=== PATIENT | male | born 1960 | race Caucasian/White ===

== ENCOUNTER 2019-08-03 13:11 | Emergency (ER) | payer MEDICARE, MEDICAID ==
[~2019-08-03] VITALS: Ht 177.8 cm; Wt 72.0 kg
[2019-08-03 13:14] VITALS: BP 120/84
[2019-08-03] MEDS ORDERED: ACETAMINOPHEN 325MG TABLET PO ONE (13:45)
[2019-08-03] MEDS ORDERED: FLUORESCEIN SODIUM 1MG/STRIP RIGHTEYE ONE (13:45)
[2019-08-03] MEDS ORDERED: TETRACAINE 0.5% OPHTH DROPS 4ML RIGHTEYE ONE (14:45)
== END 2019-08-03 15:57 | disposition home or self-care (01) ==
LOC: ER 13:11
DX: S05.01XA Injury of conjunctiva and corneal abrasion without foreign body, right eye, initial encounter (principal); X58.XXXA Exposure to other specified factors, initial encounter; Y93.9 Activity, unspecified; Y92.9 Unspecified place or not applicable; F41.9 Anxiety disorder, unspecified; J45.909 Unspecified asthma, uncomplicated; F32.9 Major depressive disorder, single episode, unspecified; I25.10 Atherosclerotic heart disease of native coronary artery without angina pectoris; F20.9 Schizophrenia, unspecified
CPT/HCPCS: 99283

== ENCOUNTER 2019-08-04 07:22 | Emergency (ER) | payer MEDICARE, MEDICAID ==
[~2019-08-04] VITALS: Ht 167.6 cm; Wt 62.0 kg
[2019-08-04] MEDS ORDERED: QUETIAPINE FUMARATE 50MG TABLET PO SCH (09:00)
[2019-08-04 10:10] VITALS: BP 126/90
== END 2019-08-04 10:39 ==
LOC: ER 08:11
DX: F30.9 Manic episode, unspecified (principal); F41.9 Anxiety disorder, unspecified; J45.909 Unspecified asthma, uncomplicated; F20.9 Schizophrenia, unspecified; I25.10 Atherosclerotic heart disease of native coronary artery without angina pectoris; Z87.09 Personal history of other diseases of the respiratory system
CPT/HCPCS: 99283; 99284

== ENCOUNTER 2019-08-04 11:14 | Emergency (ER) | payer MEDICARE, MEDICAID ==
[~2019-08-04] VITALS: Ht 167.6 cm; Wt 68.0 kg
[2019-08-04] MEDS ORDERED: SODIUM CHLORIDE 0.9% 1,000 ML IV ONE (11:34)
[2019-08-04 11:52] LABS: BASOPHILS % 0.5 % (0.0-2.0); EOSINOPHILS % 0.4 % (0.0-5.0); HEMATOCRIT. 39.9 % (42.0-52.0); LYMPHOCYTES % 27.2 % (20.0-50.0); MEAN CORPUSCULAR HEMOGLOBIN 30.4 pg (28.0-32.0); MEAN PLATELET VOLUME 7.8 fl (7.4-10.4); MONOCYTES % 10.1 % (2.0-8.0); NEUTROPHILS % 61.8 % (40.0-76.0); PLATELET 225 x1000/uL (130-400); RED BLOOD CELL COUNT 4.59 mill/uL (4.7-6.1); RED CELL DISTRIBUTION WIDTH 13.2 % (11.6-14.6)
[2019-08-04 11:56] LABS: CHLORIDE 108 mEq/L (98-107)
[2019-08-04 12:00] LABS: ETHANOL BLOOD < 10 mg/dL
[2019-08-04] MEDS ORDERED: OLANZAPINE 10 MG/VIAL IM ONE (12:00)
[2019-08-04] MEDS ORDERED: LORAZEPAM 2MG/ML CPJ IM ONE (12:00)
[2019-08-04 14:21] LABS: CLARITY URINE CLEAR (CLEAR); COLOR URINE YELLOW (YELLOW); KETONES URINE 2+ (NEGATIVE); LEUKOCYTE ESTERASE URINE NEGATIVE (NEGATIVE); NITRITE URINE NEGATIVE (NEGATIVE); OCCULT BLOOD URINE NEGATIVE (NEGATIVE); PH URINE 6.5 (4.5-8.0); PROTEIN URINE NEGATIVE (NEGATIVE); SPECIFIC GRAVITY URINE 1.012 (1.005-1.030); UROBILINOGEN URINE 0.2 E.U./dL (0.2-1.0)
[2019-08-04 14:43] LABS: *AMPHETAMINES SCREEN URINE NEGATIVE (NEGATIVE); *BARBITURATES SCREEN URINE NEGATIVE (NEGATIVE); *BENZODIAZEPINES SCREEN URINE NEGATIVE (NEGATIVE); *COCAINE SCREEN URINE NEGATIVE (NEGATIVE); CANNABINOID URINE SCREEN NEGATIVE (NEGATIVE); METHADONE URINE SCREEN NEGATIVE (NEGATIVE); OPIATES URINE SCREEN NEGATIVE (NEGATIVE)
[2019-08-04 14:44] LABS: PHENCYCLIDINE URINE SCREEN NEGATIVE (NEGATIVE)
[2019-08-05 12:30] VITALS: BP 121/73
== END 2019-08-05 12:50 | disposition home or self-care (01) ==
LOC: ER 11:14
DX: R45.1 Restlessness and agitation (principal); F20.9 Schizophrenia, unspecified; F41.9 Anxiety disorder, unspecified; J45.909 Unspecified asthma, uncomplicated; F32.9 Major depressive disorder, single episode, unspecified; I25.10 Atherosclerotic heart disease of native coronary artery without angina pectoris
CPT/HCPCS: 36415; 80053; 80305; 80307; 80320; 80329; 81003; 84484; 85025; 93005; 96372; 99284; J2060; J3490; J7030; 99283; G0480

== ENCOUNTER 2019-12-31 19:14 | Inpatient (IN) | payer MEDICARE, OTHER ==
[~2019-12-31] VITALS: Ht 167.6 cm; Wt 63.5 kg
[2019-12-31 21:31] LABS: BASOPHILS % 0.5 % (0.0-2.0); HEMATOCRIT. 42.2 % (42.0-52.0); HEMOGLOBIN. 14.8 g/dL (14.0-18.0); LYMPHOCYTES % 32.9 % (20.0-50.0); MEAN CORPUSCULAR HEMOGLOBIN 30.6 pg (28.0-32.0); MEAN CORPUSCULAR VOLUME 87.1 fL (80.0-94.0); MEAN PLATELET VOLUME 8.6 fl (7.4-10.4); MONOCYTES % 8.6 % (2.0-8.0); PLATELET 205 x1000/uL (130-400); RED BLOOD CELL COUNT 4.84 mill/uL (4.7-6.1); RED CELL DISTRIBUTION WIDTH 13.6 % (11.6-14.6)
[2019-12-31 21:38] LABS: CHLORIDE 103 mEq/L (98-107)
[2019-12-31 21:41] LABS: INR 0.9; PARTIAL THROMBOPLASTIN TIME 26.4 sec (23.4-31.0); PROTHROMBIN TIME 10.3 sec (9.6-11.0)
[2019-12-31] MEDS ORDERED: LORAZEPAM 1MG TABLET PO ONE (21:45)
[2020-01-01] MEDS ORDERED: ONDANSETRON HCL 4MG/2ML INJ IV PRN (01:00)
[2020-01-01] MEDS ORDERED: DIPHENHYDRAMINE 50MG/ML VIAL IV PRN (01:00)
[2020-01-01] MEDS ORDERED: GUAIFENESIN 200MG/10ML SUGAR FREE UDC PO PRN (01:00)
[2020-01-01] MEDS ORDERED: MAGNESIUM/ALUMINUM HYDROXIDE/SIMETHICONE 30ML UDC PO PRN (01:00)
[2020-01-01] MEDS ORDERED: CLONIDINE 0.1MG TABLET PO PRN (01:00)
[2020-01-01] MEDS ORDERED: ACETAMINOPHEN 325MG TABLET PO PRN ×2 (01:00)
[2020-01-01] MEDS ORDERED: POTASSIUM CHLORIDE 20MEQ TABLET SR PO SCH (01:00)
[2020-01-01 03:21] VITALS: BP 124/71
[2020-01-01] MEDS ORDERED: MELA10TA3 PO (04:19)
[2020-01-01] MEDS ORDERED: DOCU-138 PO (04:19)
[2020-01-01] MEDS ORDERED: LORA-250 PO (04:19)
[2020-01-01] MEDS ORDERED: LACT10SO30 MT (04:19)
[2020-01-01] MEDS ORDERED: CALC-1042 PO (04:19)
[2020-01-01] MEDS: SODIUM CHLORIDE 0.9% INJ 3ML FLUSH IVF SCH ×3 (05:40→21:17)
[2020-01-01] MEDS: ASPIRIN 81MG TABLET PO SCH (07:59)
[2020-01-01 08:00] VITALS: BP 124/75
[2020-01-01] MEDS: LORAZEPAM 1MG TABLET PO PRN ×2 (10:35→21:17)
[2020-01-01 12:00] VITALS: BP 121/59
[2020-01-01] MEDS ORDERED: INFLUENZA VIRUS VACCINE(AFLURIA) 0.5ML SYR IM ONE (12:00)
[2020-01-01] MEDS ORDERED: PNEUMOCOCCAL 23-VAL P-SAC VAC 0.5 ML IM ONE (12:00)
[2020-01-01] MEDS ORDERED: NON FORMULARY PATIENT HOME MED XX SCH (15:00)
[2020-01-01 16:00] VITALS: BP 124/82
[2020-01-01] MEDS: DOCUSATE SODIUM 250MG CAPSULE PO SCH (17:44)
[2020-01-01] MEDS: CARBIDOPA/LEVODOPA 10/100MG TABLET PO SCH ×2 (17:44→21:17)
[2020-01-01] MEDS: CHOLECALCIFEROL (D3) 1000 UNIT TABLET PO SCH (17:44)
[2020-01-01] MEDS: PROPRANOLOL HCL 10MG TABLET PO SCH (17:44)
[2020-01-01] MEDS: PRAMIPEXOLE DI-HCL 0.25MG TABLET PO SCH (17:44)
[2020-01-01] MEDS: MONTELUKAST SODIUM 10MG TABLET PO SCH (17:45)
[2020-01-01] MEDS: QUETIAPINE FUMARATE 50MG TABLET PO SCH (17:45)
[2020-01-01] MEDS: ALBUTEROL 6.7GM HFA INHALER ORI SCH (18:00)
[2020-01-01 20:00] VITALS: BP 95/61
[2020-01-01] MEDS ORDERED: FAMOTIDINE 20MG TABLET PO SCH (21:00)
[2020-01-01] MEDS: FAMOTIDINE 20MG TABLET PO SCH (21:16)
[2020-01-01 21:51] LABS: CLARITY URINE CLEAR (CLEAR); COLOR URINE YELLOW (YELLOW); KETONES URINE NEGATIVE (NEGATIVE); LEUKOCYTE ESTERASE URINE NEGATIVE (NEGATIVE); NITRITE URINE NEGATIVE (NEGATIVE); OCCULT BLOOD URINE NEGATIVE (NEGATIVE); PH URINE 7.5 (4.5-8.0); PROTEIN URINE NEGATIVE (NEGATIVE); UROBILINOGEN URINE 0.2 E.U./dL (0.2-1.0)
[2020-01-01] MEDS: ZOLPIDEM TARTRATE 5MG TABLET PO PRN (22:47)
[2020-01-02] VITALS (7 sets, daily range): BP systolic 82–120; BP diastolic 49–79
[2020-01-02] MEDS: PROPRANOLOL HCL 10MG TABLET PO SCH ×3 (01:44→17:44)
[2020-01-02] MEDS: PRAMIPEXOLE DI-HCL 0.25MG TABLET PO SCH ×3 (01:58→17:44)
[2020-01-02] MEDS: SODIUM CHLORIDE 0.9% INJ 3ML FLUSH IVF SCH ×3 (05:28→21:36)
[2020-01-02] MEDS: ALBUTEROL 6.7GM HFA INHALER ORI SCH ×4 (05:28→18:00)
[2020-01-02] MEDS ORDERED: POTASSIUM CHLORIDE 20MEQ TABLET SR PO NR (09:15)
[2020-01-02] MEDS: CHOLECALCIFEROL (D3) 1000 UNIT TABLET PO SCH (09:52)
[2020-01-02] MEDS: LORAZEPAM 1MG TABLET PO PRN ×3 (09:52→17:45)
[2020-01-02] MEDS: FAMOTIDINE 20MG TABLET PO SCH ×2 (09:52→21:27)
[2020-01-02] MEDS: DOCUSATE SODIUM 250MG CAPSULE PO SCH ×2 (09:52→17:44)
[2020-01-02] MEDS: MONTELUKAST SODIUM 10MG TABLET PO SCH ×2 (09:52→17:44)
[2020-01-02] MEDS: ASPIRIN 81MG TABLET PO SCH (09:53)
[2020-01-02] MEDS: QUETIAPINE FUMARATE 50MG TABLET PO SCH ×2 (09:53→21:29)
[2020-01-02] MEDS: CARBIDOPA/LEVODOPA 10/100MG TABLET PO SCH ×4 (09:53→21:29)
[2020-01-02] MEDS: LACTULOSE 20G/30ML UDC PO SCH (09:54)
[2020-01-02] MEDS: ZOLPIDEM TARTRATE 5MG TABLET PO PRN (21:29)
[2020-01-03] VITALS: BP 105/72
[2020-01-03] MEDS: PRAMIPEXOLE DI-HCL 0.25MG TABLET PO SCH ×3 (02:14→17:25)
[2020-01-03] MEDS: PROPRANOLOL HCL 10MG TABLET PO SCH ×3 (02:17→17:27)
[2020-01-03] MEDS ORDERED: ALBUTEROL (0.083%) 2.5MG/3ML NEB HHN SCH (06:00)
[2020-01-03] MEDS: SODIUM CHLORIDE 0.9% INJ 3ML FLUSH IVF SCH ×2 (06:33→12:35)
[2020-01-03 08:00] VITALS: BP 100/64
[2020-01-03] MEDS ORDERED: REGADENOSON 0.4 MG/5 ML IV ONE ×2 (08:45→11:15)
[2020-01-03] MEDS: DOCUSATE SODIUM 250MG CAPSULE PO SCH ×2 (09:32→16:39)
[2020-01-03] MEDS: LACTULOSE 20G/30ML UDC PO SCH (09:32)
[2020-01-03] MEDS: ASPIRIN 81MG TABLET PO SCH (09:33)
[2020-01-03] MEDS: FAMOTIDINE 20MG TABLET PO SCH (09:33)
[2020-01-03] MEDS: CHOLECALCIFEROL (D3) 1000 UNIT TABLET PO SCH (09:34)
[2020-01-03] MEDS: CARBIDOPA/LEVODOPA 10/100MG TABLET PO SCH ×3 (09:35→16:39)
[2020-01-03] MEDS: QUETIAPINE FUMARATE 50MG TABLET PO SCH ×2 (09:38→16:39)
[2020-01-03 12:00] VITALS: BP 107/77
[2020-01-03 16:00] VITALS: BP 94/63
[2020-01-03 18:27] VITALS: BP 94/63
[2020-01-03 20:00] VITALS: BP 96/62
== END 2020-01-03 20:56 | DRG 392 ==
LOC: ER 19:14 → 7WST 22:41 → EDBEDREQ 22:43 → EDBEDREQTM 22:43 → ENRESERV 01-01 02:16 → 5WST 01-02 18:02
PROVIDERS: ADMIT Internal Medicine; ATTEND Internal Medicine
DX: K21.9 Gastro-esophageal reflux disease without esophagitis (principal); J45.901 Unspecified asthma with (acute) exacerbation; F20.9 Schizophrenia, unspecified; E87.6 Hypokalemia; G20 Parkinson's disease; I25.10 Atherosclerotic heart disease of native coronary artery without angina pectoris; F32.9 Major depressive disorder, single episode, unspecified; Z90.49 Acquired absence of other specified parts of digestive tract; Z20.828 Contact with and (suspected) exposure to other viral communicable diseases; Z78.9 Other specified health status; Z83.3 Family history of diabetes mellitus; Z87.442 Personal history of urinary calculi; Z79.899 Other long term (current) drug therapy
CPT/HCPCS: 36415; 71045; 78452; 80053; 81003; 83735; 83880; 84484; 85025; 87635; 93005; 93017; 99291; A9500; J2785

== ENCOUNTER 2020-01-13 11:58 | Emergency (ER) | payer MEDICARE, OTHER ==
[~2020-01-13] VITALS: Ht 170.2 cm; Wt 77.0 kg
[~2020-01-13 11:58] MED LIST: CALC-1042 PO; DOCU-138 PO; LACT10SO30 MT; LORA-250 PO; MELA10TA3 PO
[2020-01-13] MEDS ORDERED: ONDANSETRON HCL 4MG/2ML INJ IV STA (12:08)
[2020-01-13] MEDS ORDERED: MORPHINE SULFATE 4 MG/ML CPJ (NOT FOR IM USE) IV STA (12:08)
[2020-01-13] MEDS ORDERED: SODIUM CHLORIDE 0.9% 1,000 ML IV ONE (12:08)
[2020-01-13] MEDS ORDERED: FAMOTIDINE 20MG/2ML VIAL IV STA (12:08)
[2020-01-13 12:44] LABS: BASOPHILS % 0.5 % (0.0-2.0); EOSINOPHILS % 0.9 % (0.0-5.0); HEMATOCRIT. 39.6 % (42.0-52.0); HEMOGLOBIN. 13.9 g/dL (14.0-18.0); LYMPHOCYTES % 19.4 % (20.0-50.0); MEAN CORPUSCULAR HEMOGLOBIN 30.2 pg (28.0-32.0); MEAN CORPUSCULAR VOLUME 86.2 fL (80.0-94.0); MEAN PLATELET VOLUME 7.4 fl (7.4-10.4); MONOCYTES % 8.9 % (2.0-8.0); NEUTROPHILS % 70.3 % (40.0-76.0); PLATELET 226 x1000/uL (130-400); RED CELL DISTRIBUTION WIDTH 13.7 % (11.6-14.6)
[2020-01-13 12:50] LABS: CHLORIDE 109 mEq/L (98-107)
[2020-01-13 12:51] LABS: PROTHROMBIN TIME 10.6 sec (9.6-11.0)
[2020-01-13 12:57] LABS: ETHANOL BLOOD < 10 mg/dL
[2020-01-13 14:10] LABS: CLARITY URINE CLEAR (CLEAR); COLOR URINE YELLOW (YELLOW); KETONES URINE NEGATIVE (NEGATIVE); LEUKOCYTE ESTERASE URINE NEGATIVE (NEGATIVE); NITRITE URINE NEGATIVE (NEGATIVE); OCCULT BLOOD URINE NEGATIVE (NEGATIVE); PROTEIN URINE NEGATIVE (NEGATIVE); SPECIFIC GRAVITY URINE 1.005 (1.005-1.030); UROBILINOGEN URINE 0.2 E.U./dL (0.2-1.0)
[2020-01-13 14:38] LABS: *AMPHETAMINES SCREEN URINE NEGATIVE (NEGATIVE); *BARBITURATES SCREEN URINE NEGATIVE (NEGATIVE); *BENZODIAZEPINES SCREEN URINE NEGATIVE (NEGATIVE); *COCAINE SCREEN URINE NEGATIVE (NEGATIVE); METHADONE URINE SCREEN NEGATIVE (NEGATIVE); OPIATES URINE SCREEN PRESUMTIVE POSITIVE (NEGATIVE)
[2020-01-13 14:39] LABS: CANNABINOID URINE SCREEN NEGATIVE (NEGATIVE); PHENCYCLIDINE URINE SCREEN NEGATIVE (NEGATIVE)
[2020-01-13 15:21] VITALS: BP 132/87
== END 2020-01-13 17:20 | disposition home or self-care (01) ==
LOC: ER 11:58
DX: R10.13 Epigastric pain (principal); R11.10 Vomiting, unspecified; F20.9 Schizophrenia, unspecified; F32.9 Major depressive disorder, single episode, unspecified; F41.9 Anxiety disorder, unspecified; J45.909 Unspecified asthma, uncomplicated; I25.10 Atherosclerotic heart disease of native coronary artery without angina pectoris
CPT/HCPCS: 36415; 71045; 74176; 80053; 80305; 80320; 81003; 83690; 85025; 85610; 96361; 96374; 96375; 99285; J2270; J2405; J3490; J7030; G0480

== ENCOUNTER 2021-04-26 17:21 | Emergency (ER) | payer MEDICARE, MEDICAID ==
[~2021-04-26] VITALS: Ht 167.6 cm; Wt 65.0 kg
[2021-04-26 20:19] LABS: BASOPHILS % 0.7 % (0.0-2.0); EOSINOPHILS % 4.5 % (0.0-5.0); HEMATOCRIT. 39.4 % (42.0-52.0); HEMOGLOBIN. 13.9 g/dL (14.0-18.0); LYMPHOCYTES % 29.9 % (20.0-50.0); MEAN CORPUSCULAR HEMOGLOBIN 29.9 pg (28.0-32.0); MEAN CORPUSCULAR VOLUME 84.6 fL (80.0-94.0); MEAN PLATELET VOLUME 7.1 fl (7.4-10.4); MONOCYTES % 9.6 % (2.0-8.0); NEUTROPHILS % 55.3 % (40.0-76.0); PLATELET 279 x1000/uL (130-400); RED BLOOD CELL COUNT 4.65 mill/uL (4.7-6.1)
[2021-04-26 20:23] LABS: CHLORIDE 108 mEq/L (98-107)
[2021-04-27 00:48] VITALS: BP 152/94
== END 2021-04-27 00:45 | disposition home or self-care (01) ==
LOC: ER 17:55
DX: R42 Dizziness and giddiness (principal); F41.9 Anxiety disorder, unspecified; J45.909 Unspecified asthma, uncomplicated; J44.9 Chronic obstructive pulmonary disease, unspecified; I25.10 Atherosclerotic heart disease of native coronary artery without angina pectoris; F32.9 Major depressive disorder, single episode, unspecified; F20.9 Schizophrenia, unspecified; Z79.899 Other long term (current) drug therapy
CPT/HCPCS: 36415; 80053; 85025; 99285

== ENCOUNTER 2021-11-09 16:47 | Emergency (ER) | payer MEDICARE, MEDICAID ==
[~2021-11-09] VITALS: Ht 167.6 cm; Wt 67.0 kg
[2021-11-09 17:41] LABS: BASOPHILS % 0.6 % (0.0-2.0); EOSINOPHILS % 4.4 % (0.0-5.0); HEMOGLOBIN. 14.6 g/dL (14.0-18.0); LYMPHOCYTES % 25.6 % (20.0-50.0); MEAN CORPUSCULAR HEMOGLOBIN 29.9 pg (28.0-32.0); MEAN CORPUSCULAR VOLUME 85.8 fL (80.0-94.0); MEAN PLATELET VOLUME 7.4 fl (7.4-10.4); MONOCYTES % 8.2 % (2.0-8.0); NEUTROPHILS % 61.2 % (40.0-76.0); PLATELET 261 x1000/uL (130-400); RED BLOOD CELL COUNT 4.89 mill/uL (4.7-6.1); RED CELL DISTRIBUTION WIDTH 12.7 % (11.6-14.6)
[2021-11-09 17:44] LABS: CHLORIDE 103 mEq/L (98-107)
[2021-11-09 20:28] VITALS: BP 137/79
== END 2021-11-09 20:33 ==
LOC: ER 16:47
DX: F13.239 Sedative, hypnotic or anxiolytic dependence with withdrawal, unspecified (principal); J45.909 Unspecified asthma, uncomplicated; J44.1 Chronic obstructive pulmonary disease with (acute) exacerbation; Z86.59 Personal history of other mental and behavioral disorders; Z98.890 Other specified postprocedural states
CPT/HCPCS: 36415; 71045; 80053; 83880; 84484; 85025; 93005; 99285

== ENCOUNTER 2022-07-16 15:53 | Emergency (ER) | payer MEDICARE, MEDICAID ==
[~2022-07-16] VITALS: Ht 177.8 cm; Wt 62.0 kg
[2022-07-16] MEDS ORDERED: PREDNISONE 20MG TABLET PO STA (16:10)
[2022-07-16] MEDS ORDERED: IPRATROPIUM BROMIDE (0.02%) 0.5MG/2.5ML NEB HHN STA ×2 (16:10→18:02)
[2022-07-16] MEDS: ALBUTEROL (0.083%) 2.5MG/3ML NEB HHN SCH ×3 (17:54→18:30)
[2022-07-16] MEDS ORDERED: PREDNISONE 20MG TABLET PO NR (19:00)
[2022-07-16] MEDS ORDERED: P50 MT (20:08)
[2022-07-16 20:30] VITALS: BP 110/70
== END 2022-07-16 20:30 | disposition home or self-care (01) ==
LOC: ER 15:53
DX: J44.1 Chronic obstructive pulmonary disease with (acute) exacerbation (principal); J45.909 Unspecified asthma, uncomplicated; I25.10 Atherosclerotic heart disease of native coronary artery without angina pectoris; F41.9 Anxiety disorder, unspecified; F32.9 Major depressive disorder, single episode, unspecified; F20.9 Schizophrenia, unspecified
CPT/HCPCS: 71045; 94640; 99285; J7512

== ENCOUNTER 2022-09-28 08:49 | Emergency (ER) | payer MEDICARE, OTHER ==
[~2022-09-28] VITALS: Ht 167.6 cm; Wt 75.0 kg
[~2022-09-28 08:49] MED LIST changes: +P50 MT
[2022-09-28] MEDS ORDERED: NITROGLYCERIN 0.4MG TABLET SL SL ONE (09:15)
[2022-09-28 09:46] VITALS: BP 133/90
[2022-09-28 09:53] LABS: BASOPHILS % 0.4 % (0.0-2.0); EOSINOPHILS % 5.1 % (0.0-5.0); HEMATOCRIT. 44.1 % (42.0-52.0); HEMOGLOBIN. 15.4 g/dL (14.0-18.0); LYMPHOCYTES % 18.5 % (20.0-50.0); MEAN CORPUSCULAR HEMOGLOBIN 30.4 pg (28.0-32.0); MEAN CORPUSCULAR VOLUME 87.3 fL (80.0-94.0); MEAN PLATELET VOLUME 7.4 fl (7.4-10.4); MONOCYTES % 8.1 % (2.0-8.0); NEUTROPHILS % 67.9 % (40.0-76.0); PLATELET 256 x1000/uL (130-400); RED BLOOD CELL COUNT 5.05 mill/uL (4.7-6.1); RED CELL DISTRIBUTION WIDTH 13.1 % (11.6-14.6)
[2022-09-28 10:20] LABS: CHLORIDE 107 mEq/L (98-107)
[2022-09-28] MEDS ORDERED: TOPUD PO (12:30)
== END 2022-09-28 12:32 | disposition home or self-care (01) ==
LOC: ER 08:49
DX: R07.9 Chest pain, unspecified (principal); F41.9 Anxiety disorder, unspecified; J45.909 Unspecified asthma, uncomplicated; I25.10 Atherosclerotic heart disease of native coronary artery without angina pectoris; J44.9 Chronic obstructive pulmonary disease, unspecified; F32.9 Major depressive disorder, single episode, unspecified; F20.9 Schizophrenia, unspecified; G20 Parkinson's disease
CPT/HCPCS: 36415; 71045; 80053; 83880; 84484; 85025; 93005; 99285